=== PATIENT | male | born 1990 | race Caucasian/White ===

== ENCOUNTER → 2024-09-01 | Outpatient (CLI) | payer BC ==
[2024-09-01 15:29] VITALS: BP 147/87; PULSE 76; RESP 16; TEMP 98.3; BMI 59.5
--- NOTE | 2024-09-01 16:29 | P.HPBAR ---
Bariatric H&P - History & Physicial H&P Date: 09/01/24 History & Physicial: Visit/CC: New Pt Patient initial contact: Initial weight: 173.953 kg Initial weight in pounds: 383.50 Height: 5 ft 7.25 in Initial BMI: 59.5 Last weight: Current weight: 173.953 kg Current weight in pounds: 383.50 Current BMI: 59.5 Cornelius body weight (based on NIH guidelines): 67.95 kg Excess body weight loss: 0.0% The patient is a 34 year-old M who presents for Bariatric Assessment. Patient here today to discuss weight loss surgeries. Patient states he has been considering sleeve gastrectomy for some time. He has family members and friends who have had the surgery performed previously. Patient suffers from hypertension. Some leg swelling. On a diuretic. No surgical history. No allergies. Patient denies history of DVT. No tobacco use. Rare episodes of dysphagia to bread products or dry meats. Never had any workup for that. Has not tried any GLP-1 agonist. No diabetes history. Has a sleep study scheduled for later this month. BMI today 59.6. Patient with mild reflux symptoms at [facility]. Takes Tums as needed. Review of Systems The patient denies any acute changes in vision or hearing, no odynophagia, no chest pain or shortness of breath, no dysuria or hematuria, no headache, no runny nose, no rectal bleeding or melena, no unexplained weight loss Past Medical History Past Medical History: Hypertension, Sleep Apnea/CPAP/BIPAP History of Any Multi-Drug Resistant Organisms: None Reported Past Surgical History: No Surgical Hx Reported Past Anesthesia/Blood Transfusion Reactions: No Reported Reaction Past Psychological History: No Psychological Hx Reported Smoking Status: Never smoker Past Alcohol Use History: None Reported Surgical - Exam Vital Signs Temp Pulse Resp BP 98.3 F 76 16 147/87 09/01/24 15:24 09/01/24 15:24 09/01/24 15:24 09/01/24 15:24 Physical exam: General: Well-developed, well-nourished HEENT: Normocephalic, sclerae nonicteric Abdomen: Nontender, nondistended Extremities: No edema Neuro: Alert and oriented Bariatric Assessment & Plan (1) Morbid obesity with BMI of 50.0-59.9, adult Narrative/Plan: 34-year-old male with morbid obesity and associate comorbidity including hypertension and probable sleep apnea. He and I discussed the options of both sleeve gastrectomy and gastric bypass at length. Both risks and benefits as well as average weight loss expectations were reviewed in detail. Patient states he is not interested in gastric bypass because of the long-term potential side effects and problems he has heard about. Patient states he was told there was a risk of gastric cancer with sleeve gastrectomy. We discussed the highly unlikely event of any connection there other than chronic antiacid use. Patient states he will consider an if he would like to proceed with surgical weight loss will contact me for preoperative upper endoscopy. Status: Acute Bariatric Checklist Checklist: Plan: Checklist: EGD: 1. Hiatal hernia: 2. H. Pylori: HgbA1c: Vitamin D: Smoking: Primary care physician referral: Dr. Ngoc Johnson Psychiatry clearance: Cardiology clearance: Sleep study: Diet journal: VTE risk score: VTE risk level: Rehab needs at discharge:
== END ==
LOC: BARWHC3 15:07
PROVIDERS: ATTEND Surgery
DX: E66.01 Morbid (severe) obesity due to excess calories (principal); I10 Essential (primary) hypertension; Z68.43 Body mass index [BMI] 50.0-59.9, adult
CPT/HCPCS: 99202

== ENCOUNTER → 2024-09-23 | Outpatient (CLI) | payer BC ==
[2024-09-23 15:56] VITALS: BP 126/82; PULSE 74; RESP 16; TEMP 98.6
--- NOTE | 2024-09-23 16:16 | P.SLEEP ---
History of Present Illness DATE: 09/23/2024 CONSULTATION/NEW PATIENT EVALUATION HISTORY OF PRESENT ILLNESS/SLEEP-WAKE EVALUATION: 34-year-old gentleman had b een evaluated in the sleep center for possible obstructive sleep apnea hypopnea syndrome. SLEEP SCHEDULE: Usually sleep schedule from 9:30 PM to 5 AM on weekdays and from midnight until 7 AM on weekend. FALLING ASLEEP: No problems with falling asleep, no TV in bedroom. DURING SLEEP: Patient usually sleeps on the side and stomach position with snoring and awakenings from sleep 2 times. No history of hypnogogical hallucinations, sleep paralysis, or cataplexy. DURING THE DAY/WAKE STATE: In the morning patient wake up tired. Koppel sleepiness scale is significantly increased to 13. Usually patient does not take naps. PAST MEDICAL HISTORY: Hypertension. PAST SURGICAL HISTORY: None. MEDICATIONS: Please see below. SOCIAL HISTORY: Please see below. FAMILY HISTORY: Please see below. REVIEW OF SYSTEMS: Snoring, sleepiness. No fevers. No double vision. No recent chest pain. No shortness of breath. No abdominal pain. No bleeding episodes. No blood in urine. No seizure episodes. PHYSICAL EXAMINATION: GENERAL: A pleasant patient without any distress. VITAL SIGNS: Please see below, weight 368.4 pounds, BMI 60.8. HEENT: PERRLA, EOMI. Evaluation of oropharynx showed tongue protrudes midline, low position of soft palate Mallampati 23. NECK: Supple. No JVD. Thyroid is not palpable. 19 inches in circumference. LUNGS: Clear to percussion and to auscultation. Good air exchange. No wheezing or rhonchi. HEART: S1, S2 regular. No murmurs, gallops or rubs. ABDOMEN: Soft and nontender. Bowel sounds are present. No organomegaly appreciated. EXTREMITIES: No clubbing or cyanosis. GLASS BEVELLER: Awake, alert, and oriented x3. Cranial nerves 2 to 7 intact. There is no fasciculation or atrophy noted. No focal deficits observed. ASSESSMENT: 1. Snoring, feeling sleepiness during the day with Koppel Sleepiness Scale 13, moderately low position of soft palate, wide neck 19 inches in circumference. Obstructive sleep apnea hypopnea syndrome. 2. Obesity, BMI 60.8. 3. Hypertension. PLAN: 1. Polysomnography for evaluation of patient's breathing during sleep. 2. Following plan after reading sleep study. 3. Preferable position during sleep on the side. 4. No driving if patient feels any sleepiness. Patient is aware of civil and criminal liability for unsafe driving. 5. Sleep hygiene with regular sleep time for at least 7.5-8 hours. 6. Watching and losing weight. Thank you very much for referring this patient for consultation. Sincerely, Ryan Hamilton MD, PhD, FAASM. Diplomat of [place] [employer], Sleep Medicine Board by [place] [employer] [place] [employer] Cl[employer] [facility] [place] cc: Ngoc Johnson [employer] MEMBER[employer]riana Past Medical History Past Medical History: Hypertension Additional Past Medical History / Comment(s): Edema - legs History of Any Multi-Drug Resistant Organisms: None Reported Past Surgical History: No Surgical Hx Reported Past Anesthesia/Blood Transfusion Reactions: No Reported Reaction Past Psychological History: No Psychological Hx Reported Smoking Status: Never smoker Past Alcohol Use History: Rare Past Drug Use History: None Reported - Past Family History Father Family Medical History: No Reported History Additional Family Medical History / Comment(s): Dad was murdered at age 35. Mother Family Medical History: Hypertension, Myocardial Infarction (MT) Additional Family Medical History / Comment(s): Smokes 2 packs a day, drinks 15 beers at night. Not sure if on BP med due to HTN or MT. Medications and Allergies Home Medications Medication Instructions Recorded Confirmed Type Chlorthalidone 25 mg PO DAILY 09/01/24 09/23/24 History Losartan Potassium 100 mg PO DAILY 09/01/24 09/23/24 History Allergies Allergy/AdvReac Type Severity Reaction Status Date / Time No Known Allergies Allergy Verified 09/01/24 15:32 Physical Exam Vitals: Vital Signs Temp Pulse Resp BP Pulse Ox 09/23/24 15:54 98.6 F 74 16 126/82 98 Intake and Output 09/23/24 09/23/24 09/23/24 06:59 14:59 22:59 Other: Weight 167.035 kg Sleep Note - Sleep Data ESS Total: 13 - Sleep Note Sleep Note: Temperature: 98.6 F Pulse Rate: 74 Respiratory Rate: 16 Blood Pressure: 126/82 SpO2: 98 Height: 5 ft 5.2 in Weight: 167.035 kg BMI: Neck Circumference: 19
== END ==
LOC: 3 N SLEEP 15:28
PROVIDERS: ATTEND Internal Medicine
DX: G47.33 Obstructive sleep apnea (adult) (pediatric) (principal); I10 Essential (primary) hypertension; E66.9 Obesity, unspecified; Z68.44 Body mass index [BMI] 60.0-69.9, adult
CPT/HCPCS: 99211

== ENCOUNTER → 2024-11-17 | Outpatient (CLI) | payer BC ==
--- NOTE | 2024-11-18 11:01 | P.PCN ---
Description of Procedure: CLINICAL: A home sleep apnea test has been done for confirmation of possible obstructive sleep apnea-hypopnea syndrome. DESCRIPTION OF PROCEDURE: RESULTS: Recording time was 7 hours 09 minutes. Evaluation time was 6 hours 59 minutes. Evaluation time is sufficient for making conclusion about results of the test. Raw data of sleep recording has been reviewed and is adequate. Respiratory channel showed 11 apneas and 111 hypopneas. Apnea-hypopnea index was 17.4 per hour. Pulse rate in the range between minimum 49, maximum 132, average 76 by computer calculation. Lowest desaturation was 69%. IMPRESSION: 1. Obstructive Sleep Apnea Hypopnea Syndrome in moderate range. 2. Morbid obesity, BMI 60.8. Please see other impressions from consultation. PLAN: 1. The patient will have PAP titration for correction of respiratory abnormallities during sleep. 2. Following plan after reading titration sleep study. 3. Watching and losing weight. 4. Sleep hygiene with regular time in bed for at least 8 hours. 5. No driving if feeling any sleepiness. Thank you very much for allowing me to participate in the management of your patient. Sincerely, Ryan Hamilton MD, PhD, FAASM Diplomat of [place] [employer] Sleep Medicine Board of [place] [employer] Banking Supervisor [facility] [place] cc: Ngoc Johnson
== END ==
LOC: 3 N SLEEP 16:40
PROVIDERS: ATTEND Internal Medicine
DX: G47.33 Obstructive sleep apnea (adult) (pediatric) (principal); E66.01 Morbid (severe) obesity due to excess calories; Z68.44 Body mass index [BMI] 60.0-69.9, adult